=== PATIENT | female | born 1945 | race Caucasian/White ===

== ENCOUNTER 2024-04-14 08:27 | Outpatient (CLI) | payer MEDICARE | END 2024-04-14 08:28 | disposition home or self-care (01) | LOC: BICRAD 08:27 | PROVIDERS: ATTEND Internal Medicine | DX: M25.551 Pain in right hip (principal); M25.552 Pain in left hip; M54.50 Low back pain, unspecified; M47.816 Spondylosis without myelopathy or radiculopathy, lumbar region; M54.2 Cervicalgia; M47.812 Spondylosis without myelopathy or radiculopathy, cervical region | CPT/HCPCS: 72040; 72100 ==